=== PATIENT | female | born 1995 | race African-American/Black ===

== ENCOUNTER 2016-12-20 15:45 | Outpatient (CLI) | payer BC ==
[2016-12-22 18:14] LABS: HPV High Risk Type 16 Negative (Negative); HPV High Risk Type 18 Negative (Negative); HPV Other High Risk Types Negative (Negative)
[2016-12-24 06:09] LABS: Chlamydia trachomatis by NAA Negative (Negative)
== END 2016-12-20 15:46 | disposition home or self-care (01) ==
LOC: MADLAB 15:45
PROVIDERS: ATTEND Family Medicine
DX: Z12.4 Encounter for screening for malignant neoplasm of cervix (principal); N89.8 Other specified noninflammatory disorders of vagina
CPT/HCPCS: 36415; 87491; 87591; 87624; 88142; G0123